=== PATIENT | male | born 1945 | race Caucasian/White ===

== ENCOUNTER 2019-03-09 07:02 | Outpatient (CLI) | payer OTHER, SELFPAY ==
[2019-03-09 07:38] LABS: HCT 42.2 % (40.0-50.0); HGB 14.6 g/dL (13.5-17.5); Mean Corp. HGB Concentration 34.6 g/dL (32.0-36.0); Mean Corpuscular Hemoglobin 31.3 pg (27.0-33.0); Mean Corpuscular Volume 90.4 fL (80-95); Mean Platelet Volume 10.2 fL (8.0-11.0); Platelet Count 252 x1000/uL (130-400); RBC 4.67 m/cumm (4.50-6.00); RBC Distribution Width 13.3 % (11.8-14.1); White Blood Cell Count 9.78 k/cumm (4.4-10.8)
[2019-03-09 08:32] LABS: ALT 46 U/L (12-78); AST 27 U/L (15-37); Albumin 3.9 g/dL (3.4-5.0); Alkaline Phosphatase 85 U/L (46-116); Anion Gap 11.3 mmol/L (3-11); BUN 14 mg/dL (7-18); Bilirubin, Total 0.5 mg/dL (0.2-1.0); CO2 24.7 mmol/L (21.0-32.0); CREATININE 1.14 mg/dL (0.70-1.30); Calcium 9.4 mg/dL (8.5-10.1); Chloride 101 mmol/L (98-107); Cholesterol 143 mg/dL (50-200); Glucose 215 mg/dL (70-100); HDL Cholesterol 36 mg/dL (40-60); LDL CHOLESTEROL 76 mg/dL (<100); Potassium 4.3 mmol/L (3.5-5.1); Sodium 137 mmol/L (136-145); Total Protein 7.4 g/dL (6.4-8.2); Triglyceride 201 mg/dL (30-150)
== END 2019-03-09 07:22 ==
PROVIDERS: PCP Nurse Practitioner; Visit Provider Nurse Practitioner
DX: E11.9 Type 2 diabetes mellitus without complications (principal); E78.5 Hyperlipidemia, unspecified; I10 Essential (primary) hypertension
CPT/HCPCS: 36415; 80053; 80061; 83721; 85027; 83036

== ENCOUNTER 2019-03-14 16:11 | Outpatient (REF) | payer OTHER, SELFPAY ==
[2019-03-14 19:41] LABS: COMMENT (LAB VIEW ONLY) 91.47 mg/dL; Microalb ug/mg Crea 8.7 ug/mg Cr
== END 2019-03-14 16:31 ==
LOC: LBN 16:11
PROVIDERS: PCP Nurse Practitioner; Visit Provider Nurse Practitioner
DX: E11.9 Type 2 diabetes mellitus without complications (principal)
CPT/HCPCS: 82043; 82570

== ENCOUNTER 2019-10-03 07:01 | Outpatient (CLI) | payer OTHER, SELFPAY ==
[2019-10-03 07:51] LABS: Hemoglobin A1C 8.5 % (4.5-6.2)
[2019-10-03 08:02] LABS: ALT 34 U/L (16-63); AST 21 U/L (15-37); Alkaline Phosphatase 87 U/L (46-116); BUN 15 mg/dL (7-18); Bilirubin, Total 0.5 mg/dL (0.2-1.0); CREATININE 1.17 mg/dL (0.70-1.30); Calcium 9.4 mg/dL (8.5-10.1); Chloride 101 mmol/L (98-107); Glucose 207 mg/dL (74-106); Potassium 4.5 mmol/L (3.5-5.1); Sodium 139 mmol/L (136-145); Total Protein 7.5 g/dL (6.4-8.2)
== END 2019-10-03 07:21 ==
PROVIDERS: PCP Nurse Practitioner; Visit Provider Nurse Practitioner
DX: I10 Essential (primary) hypertension (principal); E11.9 Type 2 diabetes mellitus without complications
CPT/HCPCS: 36415; 80053; 83036

== ENCOUNTER 2020-11-01 03:11 | Outpatient (CLI) | payer OTHER, SELFPAY ==
[2020-11-01 15:58] LABS: HCT 39.5 % (40.0-50.0); HGB 13.6 g/dL (13.5-17.5); MCH 31.1 pg (27.0-33.0); MCHC 34.4 % (32.0-36.0); MCV 90.2 fL (80-95); MPV 9.8 fL (8.0-11.0); Platelet Count 316 10^3/uL (130-400); RBC 4.38 10^6/uL (4.36-5.78); RDW 12.6 % (11.8-14.1); RDW-SD 41.5 fL; WBC 11.84 10^3/uL (4.4-10.8)
[2020-11-01 17:33] LABS: ALT 37 U/L (16-63); AST 19 U/L (15-37); Albumin 4.1 g/dL (3.4-5.0); Alkaline Phosphatase 90 U/L (46-116); Anion Gap 10.7 mmol/L (3-11); BUN 17 mg/dL (7-18); Bilirubin, Total 0.4 mg/dL (0.2-1.0); CO2 26.3 mmol/L (21.0-32.0); CREATININE 1.21 mg/dL (0.70-1.30); Calcium 9.2 mg/dL (8.5-10.1); Calculated LDL 60 mg/dL (<100); Chloride 102 mmol/L (98-107); Cholesterol 147 mg/dL (<200); Estimated GFR 58.62 (mL/min/1.73m2); Glucose 177 mg/dL (74-106); HDL Cholesterol 36 mg/dL (40-60); Sodium 139 mmol/L (136-145); Total Protein 7.5 g/dL (6.4-8.2); Triglyceride 255 mg/dL (<150)
== END 2020-11-01 03:31 ==
PROVIDERS: PCP Nurse Practitioner; Visit Provider Nurse Practitioner
DX: I10 Essential (primary) hypertension (principal); E78.5 Hyperlipidemia, unspecified; E11.9 Type 2 diabetes mellitus without complications; G47.33 Obstructive sleep apnea (adult) (pediatric)
CPT/HCPCS: 36415; 80053; 80061; 85027

== ENCOUNTER 2021-01-21 03:47 | Outpatient (CLI) | payer OTHER, SELFPAY ==
[2021-01-21 07:47] LABS: Hemoglobin A1C 8.3 % (<5.7)
[2021-01-21 07:56] LABS: HCT 41.7 % (40.0-50.0); HGB 13.9 g/dL (13.5-17.5); MCHC 33.3 % (32.0-36.0); MCV 93.1 fL (80-95); MPV 10.3 fL (8.0-11.0); Platelet Count 258 10^3/uL (130-400); RBC 4.48 10^6/uL (4.36-5.78); RDW 12.8 % (11.8-14.1); RDW-SD 43.8 fL; WBC 9.11 10^3/uL (4.4-10.8)
[2021-01-21 08:28] LABS: ALT 31 U/L (16-63); AST 14 U/L (15-37); Albumin 3.9 g/dL (3.4-5.0); Alkaline Phosphatase 101 U/L (46-116); Anion Gap 11.2 mmol/L (3-11); BUN 28 mg/dL (7-18); Bilirubin, Total 0.4 mg/dL (0.2-1.0); CO2 24.8 mmol/L (21.0-32.0); CREATININE 1.3 mg/dL (0.70-1.30); Calcium 9.2 mg/dL (8.5-10.1); Chloride 103 mmol/L (98-107); Estimated GFR 53.96 (mL/min/1.73m2); Glucose 182 mg/dL (74-106); Potassium 4.6 mmol/L (3.5-5.1); Sodium 139 mmol/L (136-145); Total Protein 7.3 g/dL (6.4-8.2)
== END 2021-01-21 03:48 | disposition home or self-care (01) ==
LOC: LBO 03:47
PROVIDERS: PCP Nurse Practitioner; Visit Provider Nurse Practitioner
DX: I10 Essential (primary) hypertension (principal); E11.9 Type 2 diabetes mellitus without complications; E78.5 Hyperlipidemia, unspecified
CPT/HCPCS: 36415; 80053; 85027; 83036

== ENCOUNTER 2021-07-23 15:08 | Outpatient (CLI) | payer OTHER, MEDICAID, SELFPAY ==
--- NOTE | 2021-07-23 15:00 | RT.EKG_ITS ---
APPROVED REPORT Exam: Resting ECG Reason for Exam: HTN Patient Location: O HR:113 bpm ECG Measurements Heart Rate 113 AXIS HI 151 P 41 QRSd 89 QRS -39 QT 323 T 64 QTc 443 Conclusion Sinus tachycardia...rate> 99 Left axis deviation...QRS axis (-30,-90)
== END 2021-07-23 15:09 | disposition home or self-care (01) ==
LOC: DI.KIM 15:08
PROVIDERS: PCP Nurse Practitioner; Visit Provider Nurse Practitioner
DX: E11.9 Type 2 diabetes mellitus without complications (principal); E78.5 Hyperlipidemia, unspecified; I10 Essential (primary) hypertension
CPT/HCPCS: 93010

== ENCOUNTER 2021-12-20 01:13 | Outpatient (CLI) | payer MEDICARE, MEDICAID, SELFPAY ==
[2021-12-20 13:18] LABS: Source Nasal/Nares
[2021-12-20 17:39] LABS: COVID-19 PCR Negative (Negative)
== END 2021-12-20 01:14 | disposition home or self-care (01) ==
LOC: LBO 01:13
PROVIDERS: PCP Nurse Practitioner; Visit Provider Ophthalmology
DX: Z20.822 Contact with and (suspected) exposure to COVID-19 (principal)
CPT/HCPCS: 87635; U0005

== ENCOUNTER 2021-12-23 11:27 | Day surgery (SDC) | payer MEDICARE, MEDICAID, SELFPAY ==
[2021-12-23] MEDS: Tropicam./Phenyleph. (1/2.5%) 5 ML BTL OS ×3 (12:28→12:42)
[2021-12-23 12:35] VITALS: BP 164/82; PULSE 119; RESP 16; TEMP 36.3; O2SAT 93
[2021-12-23 12:39] VITALS: BP 140/74; PULSE 112; RESP 16; O2SAT 95
--- NOTE | 2021-12-23 12:43 | ANES.PREOP_ITS ---
General Info Date of Service Date Performed: 12/23/21 Height: 5 ft 3.5 in Weight: 82.4 kg Body Mass Index (BMI): 31.6 Surgical Procedure: Operation Date: 12/23/21 15:40 Proposed Procedure Side Surgeon p Cataract Extraction with IOL Implant Left Alexi Peñaloza MD Meds Allergies and Home Medications Allergies Allergy/AdvReac Type Severity Reaction Status Date / Time No Known Allergies Allergy Verified 12/20/21 08:03 Home Medication Medication Instructions Recorded omega-3 fatty acids-fish oil 340 1 ea PO DAILY 12/31/12 mg-1,000 mg capsule (Fish Oil) aspirin 81 mg tablet,delayed 81 mg PO DAILY #1 tab-cap 08/11/13 release (Aspir-) blood sugar diagnostic (FreeStyle #100 strip 03/26/18 Lite Strips) albuterol sulfate 90 mcg/actuation 2 inh IH Q4H PRN #18 gm 10/02/20 aerosol inhaler lisinopril 20 1 tab PO DAILY #90 tab-cap 10/02/20 mg-hydrochlorothiazide 25 mg tablet docusate sodium 100 mg capsule 100 mg PO BID #180 cap 02/25/21 atorvastatin 40 mg tablet 40 mg PO DAILY #90 tab-cap 07/23/21 empagliflozin 25 mg tablet 25 mg PO DAILY #90 tab 09/30/21 lisinopril 20 mg tablet 20 mg PO DAILY #90 tab 09/30/21 metformin 500 mg tablet,extended 500 mg PO DAILY #90 tab-cap 09/30/21 release 24hr glipizide 10 mg tablet 10 mg PO BID #180 tab 10/14/21 Current Visit Medications: Current Medications Generic Name Dose Route Start Last Admin Trade Name Freq PRN Reason Stop Dose Admin Acetaminophen 1,000 mg 12/23/21 06:00 Acetaminophen 500 Mg Tab PO Q4H PRN PRN Miscellaneous Medication 0 ml 12/23/21 06:00 Prednisolone 1%, Moxifloxacin 0.5%, Nepafenac 0.1% 5ml Btl OS DIRECTED MAURA Miscellaneous Medication 0 ml 12/23/21 06:00 12/23/21 12:42 Tropicam./Phenyleph. (1/2.5%) 5 Ml Btl OS 1 drp DIRECTED MAURA Administration Tetracaine HCl 0 ml 12/23/21 06:00 Tetracaine 0.5% 4 Ml Btl OS DIRECTED [facility] Active Problems Active Problems: Problem Status Onset Code Diabetes mellitus type 2, controlled, without complications 05/09/13 E11.9 Hyperlipidemia 11/10/11 E78.5 Hypertension 11/10/11 I10 Knowledge deficit about therapeutic diet 03/03/18 Z78.9 Obesity, unspecified 11/10/11 E66.9 Obstructive sleep apnea syndrome 11/10/11 G47.33 Osteoarth NOS-shlder 05/09/13 M19.019 Skin tag L91.8 Cough R05 Wheeze R06.2 Depression F32.9 Noncompliance with CPAP treatment Z91.14 STEFFANIE (obstructive sleep apnea) G47.33 Routine medical exam Z00.00 Bilateral cataracts ~09/2021 H26.9 Medical History Medical History DM (diabetes mellitus) HTN (hypertension) Obesity STEFFANIE (obstructive sleep apnea) Surgical History Surgical History (Updated 12/23/21 @ 12:22 by Dahlia Hanson) Hx of shoulder surgery Tobacco Smoking/Tobacco Use Status: Never Passive smoking exposure: No Alcohol Alcohol Intake: former Substance Use Substance use: Never Substance use type: does not use Vital Signs and Lab Results Vital Signs Most Recent Vital Signs in EMR: Most Recent Vital Signs Temp Pulse Resp BP Pulse Ox 36.3 C L 112 H 16 140/74 95 12/23/21 12:35 12/23/21 12:39 12/23/21 12:39 12/23/21 12:39 12/23/21 12:39 Point of Care Results Point of Care Results: Finger Stick Blood Glucose 123 12/23/21 12:07 Lab Results Blood Type / Crossmatch: No Data to Display Complete Blood Count: No Data to Display Complete Metabolic Panel: Hemoglobin A1c 8.7 % (4.5-5.7) H 12/09/21 11:28 12/09/21 Liver Function Panel: No Data to Display Coagulation Panel: No Data to Display Cardiac Panel: No Data to Display Arterial Blood Gas: No Data to Display Venous Blood Gas: No Data to Display Pancreas Panel: No Data to Display Thyroid Panel: No Data to Display Infectious Disease: Coronavirus (COVID-19)(PCR) Negative (Negative) 12/20/21 08:43 12/20/21 Coronavirus 2019 Source Nasal/Nares 12/20/21 08:43 12/20/21 Blood Cultures: No Data to Display Toxicology Panel: No Data to Display Imaging and Studies Imaging and Studies Study information below may be from another EMR and interpreted by another provider. Please see original notes in EMR for more complete details. EKG Summary: DATE/TIME OF SERVICE: 07/23/21 1536 : 1945PERFORMING LOCATION: [facility] APPROVED REPORT Exam: Resting ECG Reason for Exam: HTN Patient Location: O HR:113 bpm ECG Measurements Heart Rate 113 AXIS SD 151 P 41 QRSd 89 QRS -39 QT 323 T64 QTc 443 Conclusion Sinus tachycardia...rate> 99 Left axis deviation...QRS axis (-30,-90) Anesthesia Assessment and Plan Anesthesia History Personal History: No History of Anesthesia Complications Family History: No Family History of Anesthesia Complications Exercise Tolerance Exercise Tolerance: Metabolic Equivalents>4 Pertinent Negatives Pertinent Negatives: No Symptoms of GERD Cardiac & Pulmonary Exam Cardiac Exam: Normal S1/S2 Heart Sounds Pulmonary Exam: Clear Bilateral Breath Sounds Implantable Cardiac Device Does patient have a Pacemaker or an ICD?: No Airway Exam Known Difficult Airway: No Mallampati Class: 2 Mouth Opening: Normal (> 3cm) Thyromental Distance: Greater than 3 cm Neck Range of Motion: Full ROM Neck Circumference: Normal Teeth Condition: Removable Dentures/Plates Upper ASA Classification ASA Score: ASA 2 Emergency Case?: No NPO Status NPO Status: NPO Clears >2 hours, Solids >8 hours Anesthesia Plan Resuscitation Status: Full Code Anesthesia Technique: MAC Anesthesia Airway Planned: Natural Airway Monitors Used: Standard Monitors
[2021-12-23 13:06] VITALS: BMI 31.6
[2021-12-23] MEDS: Tetracaine 0.5% 4 ML BTL OS (13:19)
[2021-12-23] MEDS: Lidocaine 2% Jelly 6 ML SYR (13:20)
[2021-12-23] MEDS: Povidone-Iodine Ophth 30 ML BTL (13:20)
[2021-12-23] MEDS: Duovisc Viscoelastic System EACH 1 EACH (13:30)
[2021-12-23] MEDS: Balanced Salt Soln.-PLUS 500 ML BAG (13:30)
[2021-12-23 13:48] VITALS: BP 128/86; PULSE 112; RESP 16; TEMP 36.4; O2SAT 93
--- NOTE | 2021-12-23 13:48 | W.PM.DSUDISC ---
Discharge Plan Disposition Patient Disposition: HOME Condition: Good Discharge Details Attending Provider: Alexi Peñaloza Primary Care Provider: Farrah Shepard Home Meds and New Rx's Prescriptions: No Action lisinopril-hydrochlorothiazide 20-25 mg tablet 1 tab PO DAILY Qty: 90 3RF albuterol sulfate 90 mcg/actuation HFA aerosol inhaler 2 inh IH Q4H PRN (Reason: shortness of breath or wheezing) Qty: 18 6RF docusate sodium 100 mg capsule 100 mg PO BID Qty: 180 3RF atorvastatin 40 mg tablet 40 mg PO DAILY Qty: 90 3RF aspirin [Aspir-81] 81 MG tablet,delayed release (DR/EC) 81 mg PO DAILY Qty: 1 12RF (DME) FreeStyle Lite Strips 1 EACH strip 1 ea Miscellaneous BID Qty: 100 6RF Rx Instructions: Dx: E11.9 empagliflozin 25 mg tablet 25 mg PO DAILY Qty: 90 3RF Rx Instructions: 1/2 tab daily for 7 days then 1 full tab daily. lisinopril 20 mg tablet 20 mg PO DAILY Qty: 90 3RF Rx Instructions: Take with Lisinopril 20/HCTZ 25 to total 40mg daily of Lisinopril metformin 500 mg tablet extended release 24hr 500 mg PO DAILY Qty: 90 3RF glipizide 10 mg tablet 10 mg PO BID Qty: 180 3RF Fish Oil 1 EACH capsule 1 ea PO DAILY 0RF Discharge Instructions Stand Alone Forms: Post-op Topical Cataract, Irma Still (DSU) Discharge Orders Discharge Orders: Discharge Order (Routine); Ordered 12/23/21 Ordered By: Alexi Peñaloza DS: Diagnosis Discharge Diagnosis (1) Posterior subcapsular age-related cataract of left eye: Status: Resolved (2) Nuclear sclerotic cataract of left eye: Status: Resolved
--- NOTE | 2021-12-23 13:51 | W.PM.OP ---
Date of service: 12/23/21 Time of Service: 13:52 Operative Note Operative Note DATE OF PROCEDURE: 12/23/21 PRE-OP DIAGNOSIS: Nuclear/posterior subcapsular cataract, left eye POST-OP DIAGNOSIS: same PROCEDURE: Cataract extraction using phacoemulsification with intraocular lens implant, left eye SURGEON: Alexi Peñaloza ANESTHESIA TYPE: Local By Surgeon and MAC Refer to Anesthesia Record PATHOLOGY: none sent COMPLICATIONS: None Patient was transported to: same day Patient's condition: stable Implants: Wayne Clareon [id number] Indications: Progressive decreased vision due to cataract, left eye Procedure Description: CATARACT SURGERY OPERATIVE REPORT PREOPERATIVE DIAGNOSIS: Nuclear/posterior subcapsular cataract, left eye POSTOPERATIVE DIAGNOSIS: Same OPERATION: Cataract extraction using phacoemulsification with posterior chamber intraocular lens implant, left eye. IOL: IOL Stretcher Leveler Operator Helper/Model: Wayne Clareon [id number] IOL Power: + 21.0 diopters IOL Serial Number: [id number] Optic Diameter: 6.0mm Haptic/Overall Diameter: 13.0mm PHACO INFO: WayneBroadband Voiceurion Vision System with OZil and Active Fluidics Cumulative Dispersed Energy (CDE): 7.64 seconds SURGEON: Alexi Peñaloza MD, EUGENIA ANESTHESIA: Monitored Anesthesia Care (MAC), with local sub-tenon's anesthetic infiltration COMPLICATIONS: None SPECIMENS: None INDICATIONS FOR PROCEDURE: The patient is a 76-year-old gentleman with history of diminished visual acuity in his left eye secondary to the development of nuclear and posterior subcapsular cataract. He is significantly symptomatic that he desires cataract surgery and attempt to improve and maximize his vision. The option of cataract surgery was offered to the patient and he wished to proceed. PROCEDURE: The correct surgical eye was identified and marked as the left eye and the pupil was dilated in the preoperative area using mydriatics and cycloplegics. The dilated pupil size was 5.5 mm. Oral sedation was administered in the form of an Imprimis MKO Melt (midazolam 3mg/ketamine 25mg/ondansetron 2mg). The patient was brought to the operating room where cardiopulmonary monitoring was instituted and surgical time-out was performed, confirming the correct operative eye and IOL power. Topical anesthesia was administered and ophthalmic povidone-iodine 5% was instilled into the conjunctival fornices. Lidocaine gel was applied to the cornea and the purvi-ocular area was prepped with Betadine 10% solution and draped in the usual sterile fashion for intraocular surgery, including an aperture drape. A Tegaderm transparent film dressing was cut in half and used to cover the lashes and lid margins. Care was taken to sequester the lashes and lid margins under the Tegaderm dressing. A lid speculum was placed between the lids of the operative eye and the Wayne LuxOR Revalia operating microscope was maneuvered into position. Abdulkadir scissors were then used to make a conjunctival buttonhole approximately 6mm posterior to the limbus in the inferonasal quadrant. Blunt dissection was carried out to expose bare sclera, and a blunt-tipped sub-tenon?s anesthesia cannula was introduced and passed posteriorly along the globe where non-preserved plain lidocaine was injected into posterior sub-Tenon?s space. A sideport knife was used to make a paracentesis port superior/superiortemporally. Intraocular phenylephrine/lidocaine was injected into the anterior chamber. The anterior chamber was then filled with viscoelastic. A 2.4mm keratome knife was used to create a half-thickness groove at the limbus and then to construct a three-plane near-clear corneal tunnel extending 2.0mm into clear cornea in the temporal position. . A flap was raised on the anterior capsule and capsulorhexis forceps were used to complete a continuous curvilinear capsulorhexis of 5.0 mm. Balanced salt solution was then used to perform cortical cleaving hydrodissection and nuclear hydrodelineation until the lens could be freely rotated within the capsular bag. The lens nucleus was then disassembled and removed within the capsular bag and iris plane using phacoemulsification. Residual cortical material was removed using the 45-degree angled silicone I/A tip with 0.3mm port. The posterior capsule was carefully polished to remove as much residual lens epithelial cells as safely possible. The capsular bag was then inflated and the anterior chamber deepened with viscoelastic. The lens implant described above was inserted into the capsular bag using the Wayne Autonome Injector. A Kuglen hook was used to dial the IOL into position. Residual viscoelastic was then removed first from posterior to the IOL, then from the anterior chamber using the I/A handpiece. The lens implant was noted to center nicely within the capsular bag. The incisions were stromally hydrated, and the anterior chamber was reformed using BSS. Then 0.5cc of moxifloxacin 1.0mg/ml were injected into the capsular bag and anterior chamber. The incisions were checked with a Weck spear and found to be secure. Several drops of ophthalmic povidone-iodine 5% were then applied to the eye followed by two drops of Imprimis combination prednisolone/moxifloxacin/nepafenac solution. The drapes were removed and a clear plastic protective eye shield was placed over the eye. The patient was then returned to Same Day Surgery in stable condition.
--- NOTE | 2021-12-23 13:56 | W.ANESPOSTOP ---
Postoperative Evaluation Date, Time and Location Date Performed: 12/23/21 Time Performed: 13:56 Patient Location: Day Surgery Unit Vital Signs Most Recent Imported Vital Signs: Most Recent Vital Signs Temp Pulse Resp BP Pulse Ox 36.4 C L 112 H 16 128/86 93 12/23/21 13:48 12/23/21 13:48 12/23/21 13:48 12/23/21 13:48 12/23/21 13:48 Pain Score Most Recent Pain Score: Most Recent Pain Score Pain Level 0 12/23/21 13:48 Assessment Mental Status: Awake (Alert & Oriented to Patient Baseline) Airway and Respiratory Function: Patent airway with normal (patient baseline) respiratory exam Cardiovascular Function: Hemodynamically Stable Hydration Status: Adequately Hydrated Nausea & Vomiting: No Nausea or Vomiting Pain: Pt. Denies Any Pain Peripheral Nerve Block: Patient did not receive a nerve block Teaching Patient Teaching: Advised to seek followup for the following concerns (See explanation) Concerns: Other (Ongoing tachycardia. It appears his HR has been 100-120 for months. I suggested he followup woth PCP to see if optimiazation is in order. )
[2021-12-23 14:16] VITALS: BP 121/81; PULSE 117; RESP 16; TEMP 37.1; O2SAT 96
== END 2021-12-23 14:20 | disposition home or self-care (01) ==
PROVIDERS: PCP Nurse Practitioner; Visit Provider Ophthalmology
PROC: (CPT 66984; principal; 2021-12-23 15:30)
DX: H25.042 Posterior subcapsular polar age-related cataract, left eye (principal); E11.9 Type 2 diabetes mellitus without complications; G47.33 Obstructive sleep apnea (adult) (pediatric); I10 Essential (primary) hypertension
CPT/HCPCS: 66984; V2632

== ENCOUNTER 2022-01-03 01:47 | Outpatient (CLI) | payer MEDICARE, SELFPAY ==
[2022-01-03 12:25] LABS: Source Nasal/Nares
[2022-01-03 17:20] LABS: COVID-19 PCR Negative (Negative)
== END 2022-01-03 01:48 | disposition home or self-care (01) ==
LOC: LBO 01:47
PROVIDERS: PCP Nurse Practitioner; Visit Provider Ophthalmology
DX: Z20.822 Contact with and (suspected) exposure to COVID-19 (principal); Z01.818 Encounter for other preprocedural examination
CPT/HCPCS: 87635; U0005

== ENCOUNTER 2022-01-06 07:58 | Day surgery (SDC) | payer MEDICARE, SELFPAY ==
[2022-01-06] MEDS: Tropicam./Phenyleph. (1/2.5%) 5 ML BTL OD ×3 (08:27→08:37)
[2022-01-06 08:28] VITALS: BP 140/90; PULSE 108; RESP 18; TEMP 36; O2SAT 98
--- NOTE | 2022-01-06 09:24 | ANES.PREOP_ITS ---
General Info Date of Service Date Performed: 01/06/22 Height: 5 ft 3.5 in Weight: 82.5 kg Body Mass Index (BMI): 31.7 Surgical Procedure: Operation Date: 01/06/22 10:40 Proposed Procedure Side Surgeon p Cataract Extraction with IOL Implant Right Alexi Peñaloza MD Meds Allergies and Home Medications Allergies Allergy/AdvReac Type Severity Reaction Status Date / Time No Known Allergies Allergy Verified 01/06/22 08:24 Home Medication Medication Instructions Recorded omega-3 fatty acids-fish oil 340 1 ea PO DAILY 12/31/12 mg-1,000 mg capsule (Fish Oil) aspirin 81 mg tablet,delayed 81 mg PO DAILY #1 tab-cap 08/11/13 release (Aspir-) blood sugar diagnostic (FreeStyle #100 strip 03/26/18 Lite Strips) albuterol sulfate 90 mcg/actuation 2 inh IH Q4H PRN #18 gm 10/02/20 aerosol inhaler lisinopril 20 1 tab PO DAILY #90 tab-cap 10/02/20 mg-hydrochlorothiazide 25 mg tablet docusate sodium 100 mg capsule 100 mg PO BID #180 cap 02/25/21 atorvastatin 40 mg tablet 40 mg PO DAILY #90 tab-cap 07/23/21 empagliflozin 25 mg tablet 25 mg PO DAILY #90 tab 09/30/21 lisinopril 20 mg tablet 20 mg PO DAILY #90 tab 09/30/21 metformin 500 mg tablet,extended 500 mg PO DAILY #90 tab-cap 09/30/21 release 24hr glipizide 10 mg tablet 10 mg PO BID #180 tab 10/14/21 Current Visit Medications: Current Medications Generic Name Dose Route Start Last Admin Trade Name Freq PRN Reason Stop Dose Admin Acetaminophen 1,000 mg 01/06/22 06:00 Acetaminophen 500 Mg Tab PO Q4H PRN PRN Miscellaneous Medication 0 ml 01/06/22 06:00 Prednisolone 1%, Moxifloxacin 0.5%, Nepafenac 0.1% 5ml Btl OD DIRECTED MAURA Miscellaneous Medication 0 ml 01/06/22 06:00 01/06/22 08:37 Tropicam./Phenyleph. (1/2.5%) 5 Ml Btl OD 1 drp DIRECTED MAURA Administration Tetracaine HCl 0 ml 01/06/22 06:00 Tetracaine 0.5% 4 Ml Btl OD DIRECTED [facility] Active Problems Active Problems: Problem Status Onset Code Diabetes mellitus type 2, controlled, without complications 05/09/13 E11.9 Hyperlipidemia 11/10/11 E78.5 Hypertension 11/10/11 I10 Knowledge deficit about therapeutic diet 03/03/18 Z78.9 Obesity, unspecified 11/10/11 E66.9 Obstructive sleep apnea syndrome 11/10/11 G47.33 Osteoarth NOS-shlder 05/09/13 M19.019 Skin tag L91.8 Cough R05 Wheeze R06.2 Depression F32.9 Noncompliance with CPAP treatment Z91.14 STEFFANIE (obstructive sleep apnea) G47.33 Routine medical exam Z00.00 Bilateral cataracts ~09/2021 H26.9 Nuclear sclerotic cataract of left eye H25.12 Posterior subcapsular age-related cataract of left eye H25.042 Medical History Medical History DM (diabetes mellitus) HTN (hypertension) Obesity STEFFANIE (obstructive sleep apnea) Surgical History Surgical History (Updated 01/06/22 @ 08:24 by Dahlia Hanson) Hx of cataract surgery Hx of shoulder surgery Tobacco Smoking/Tobacco Use Status: Never Passive smoking exposure: No Alcohol Alcohol Intake: former Substance Use Substance use: Never Substance use type: does not use Vital Signs and Lab Results Vital Signs Most Recent Vital Signs in EMR: Most Recent Vital Signs Temp Pulse Resp BP Pulse Ox 36 C L 108 H 18 140/90 98 01/06/22 08:28 01/06/22 08:28 01/06/22 08:28 01/06/22 08:28 01/06/22 08:28 Point of Care Results Point of Care Results: Finger Stick Blood Glucose 210 01/06/22 08:37 Lab Results Blood Type / Crossmatch: No Data to Display Complete Blood Count: No Data to Display Complete Metabolic Panel: Hemoglobin A1c 8.7 % (4.5-5.7) H 12/09/21 11:28 12/09/21 Liver Function Panel: No Data to Display Coagulation Panel: No Data to Display Cardiac Panel: No Data to Display Arterial Blood Gas: No Data to Display Venous Blood Gas: No Data to Display Pancreas Panel: No Data to Display Thyroid Panel: No Data to Display Infectious Disease: Coronavirus (COVID-19)(PCR) Negative (Negative) 01/03/22 08:48 01/03/22 Coronavirus 2019 Source Nasal/Nares 01/03/22 08:48 01/03/22 Blood Cultures: No Data to Display Toxicology Panel: No Data to Display Imaging and Studies Imaging and Studies Study information below may be from another EMR and interpreted by another provider. Please see original notes in EMR for more complete details. EKG Summary: DATE/TIME OF SERVICE: 07/23/21 1536 : 1945PERFORMING LOCATION: [facility] APPROVED REPORT Exam: Resting ECG Reason for Exam: HTN Patient Location: O HR:113 bpm ECG Measurements Heart Rate 113 AXIS VA 151 P 41 QRSd 89 QRS -39 QT 323 T64 QTc 443 Conclusion Sinus tachycardia...rate> 99 Left axis deviation...QRS axis (-30,-90) Anesthesia Assessment and Plan Anesthesia History Personal History: No History of Anesthesia Complications Family History: No Family History of Anesthesia Complications Exercise Tolerance Exercise Tolerance: Metabolic Equivalents>4 Pertinent Negatives Pertinent Negatives: No Symptoms of GERD, No Major Cardiovascular Symptoms or Complaints, No Major Pulmonary Symptoms or Complaints and No History of CVA/TIA Cardiac & Pulmonary Exam Cardiac Exam: Normal S1/S2 Heart Sounds Pulmonary Exam: Clear Bilateral Breath Sounds Implantable Cardiac Device Does patient have a Pacemaker or an ICD?: No Airway Exam Known Difficult Airway: No Mallampati Class: 2 Mouth Opening: Normal (> 3cm) Thyromental Distance: Greater than 3 cm Neck Range of Motion: Full ROM Neck Circumference: Normal Teeth Condition: Removable Dentures/Plates Upper ASA Classification ASA Score: ASA 2 Emergency Case?: No NPO Status NPO Status: NPO Clears >2 hours, Solids >8 hours Anesthesia Plan Resuscitation Status: Full Code Anesthesia Technique: MAC Anesthesia Airway Planned: Natural Airway Monitors Used: Standard Monitors
[2022-01-06 09:26] VITALS: BMI 31.7
[2022-01-06] MEDS: Lidocaine 2% Jelly 6 ML SYR (09:34)
[2022-01-06] MEDS: Tetracaine 0.5% 4 ML BTL OD (09:34)
[2022-01-06] MEDS: Povidone-Iodine Ophth 30 ML BTL (09:34)
[2022-01-06] MEDS: Balanced Salt Soln.-PLUS 500 ML BAG (09:44)
[2022-01-06] MEDS: Duovisc Viscoelastic System EACH 1 EACH (09:45)
[2022-01-06 10:02] VITALS: BP 116/74; PULSE 103; RESP 16; TEMP 36.6; O2SAT 97
--- NOTE | 2022-01-06 10:03 | W.PM.DSUDISC ---
Discharge Plan Disposition Patient Disposition: HOME Condition: Good Discharge Details Attending Provider: Alexi Peñaloza Primary Care Provider: Farrah Shepard Home Meds and New Rx's Prescriptions: No Action lisinopril-hydrochlorothiazide 20-25 mg tablet 1 tab PO DAILY Qty: 90 3RF albuterol sulfate 90 mcg/actuation HFA aerosol inhaler 2 inh IH Q4H PRN (Reason: shortness of breath or wheezing) Qty: 18 6RF docusate sodium 100 mg capsule 100 mg PO BID Qty: 180 3RF atorvastatin 40 mg tablet 40 mg PO DAILY Qty: 90 3RF aspirin [Aspir-81] 81 MG tablet,delayed release (DR/EC) 81 mg PO DAILY Qty: 1 12RF (DME) FreeStyle Lite Strips 1 EACH strip 1 ea Miscellaneous BID Qty: 100 6RF Rx Instructions: Dx: E11.9 empagliflozin 25 mg tablet 25 mg PO DAILY Qty: 90 3RF Rx Instructions: 1/2 tab daily for 7 days then 1 full tab daily. lisinopril 20 mg tablet 20 mg PO DAILY Qty: 90 3RF Rx Instructions: Take with Lisinopril 20/HCTZ 25 to total 40mg daily of Lisinopril metformin 500 mg tablet extended release 24hr 500 mg PO DAILY Qty: 90 3RF glipizide 10 mg tablet 10 mg PO BID Qty: 180 3RF Fish Oil 1 EACH capsule 1 ea PO DAILY 0RF Discharge Instructions Stand Alone Forms: Post-op Topical Cataract, Press Ganey (DSU) Discharge Orders Discharge Orders: Discharge Order (Routine); Ordered 01/06/22 Ordered By: Alexi Peñaloza
--- NOTE | 2022-01-06 10:03 | W.ANESPOSTOP ---
Postoperative Evaluation Date, Time and Location Date Performed: 01/06/22 Time Performed: 10:03 Patient Location: Day Surgery Unit Vital Signs Most Recent Imported Vital Signs: Most Recent Vital Signs Temp Pulse Resp BP Pulse Ox 36 C L 108 H 18 140/90 98 01/06/22 08:28 01/06/22 08:28 01/06/22 08:28 01/06/22 08:28 01/06/22 08:28 Most Recent Manually Entered Vital Signs: Adult Blood Pressure: 116/74 Heart Rate: 104 Respirations: 12 Oxygen Saturation (%): 97 Temperature (C): 6.6 C Pain Score (0-10 Scale): 0 Pain Score Most Recent Pain Score: Most Recent Pain Score Pain Level 0 01/06/22 08:28 Assessment Mental Status: Awake (Alert & Oriented to Patient Baseline) Airway and Respiratory Function: Patent airway with normal (patient baseline) respiratory exam Cardiovascular Function: Hemodynamically Stable Hydration Status: Adequately Hydrated Nausea & Vomiting: No Nausea or Vomiting Pain: Pt. Denies Any Pain Peripheral Nerve Block: Patient did not receive a nerve block
[2022-01-06 10:04] VITALS: BP 116/74; PULSE 104; RESP 12; TEMPC 43.9; TEMPC 6.6; O2SAT 97
--- NOTE | 2022-01-06 10:04 | ROE_ITS ---
Date of service: 01/06/22 Time of Service: 10:04 Operative Note Operative Note DATE OF PROCEDURE: 01/06/22 PRE-OP DIAGNOSIS: Nuclear/posterior subcapsular cataract, right eye POST-OP DIAGNOSIS: same PROCEDURE: Cataract extraction using phacoemulsification with intraocular lens implant, right eye SURGEON: Alexi Peñaloza ANESTHESIA TYPE: Local By Surgeon and MAC Refer to Anesthesia Record ESTIMATED BLOOD LOSS: 0 PATHOLOGY: none sent COMPLICATIONS: None Patient was transported to: same day Patient's condition: stable Implants: Onofre & Onofre/JEANNETTE Tecnis [id number] Indications: Progressive visual loss due to cataract, right eye Procedure Description: CATARACT SURGERY OPERATIVE REPORT PREOPERATIVE DIAGNOSIS: 1. Nuclear/posterior subcapsular cataract, right eye POSTOPERATIVE DIAGNOSIS: Same OPERATION: 1. Cataract extraction using phacoemulsification with posterior chamber intraocular lens implant, right eye. IOL: IOL Steel Placer/Model: Onofre & Onofre / JEANNETTE Tecnis [id number] IOL Power: + 20.0 diopters IOL Serial Number: [id number] Optic Diameter: 6.0mm Haptic/Overall Diameter: 13.0mm PHACO INFO: Wayne Skycast Solutionsurion Vision System with OZil and Active Fluidics Cumulative Dispersed Energy (CDE): 8.95 seconds SURGEON: Alexi Peñaloza MD, EUGENIA ANESTHESIA: Monitored Anesthesia Care (MAC), with local sub-tenon's anesthetic infiltration COMPLICATIONS: None SPECIMENS: None INDICATIONS FOR PROCEDURE: The patient is a 76-year-old gentleman with history of diminished visual acuity in both eyes secondary to the development of bilateral nuclear/posterior subcapsular cataract. He has already undergone cataract surgery in the left eye and is doing well postoperatively. He now presents for cataract surgery in the right eye. PROCEDURE: The correct surgical eye was identified and marked as the right eye and the pupil was dilated in the preoperative area using mydriatics and cycloplegics. The dilated pupil size was 5.0 mm. Oral sedation was administered in the form of an Imprimis MKO Melt (midazolam 3mg/ketamine 25mg/ondansetron 2mg). The patient was brought to the operating room where cardiopulmonary monitoring was instituted and surgical time-out was performed, confirming the correct operative eye and IOL power. Topical anesthesia was administered and ophthalmic povidone-iodine 5% was instilled into the conjunctival fornices. Lidocaine gel was applied to the cornea and the purvi-ocular area was prepped with Betadine 10% solution and draped in the usual sterile fashion for intraocular surgery, including an aperture drape. A Tegaderm transparent film dressing was cut in half and used to cover the lashes and lid margins. Care was taken to sequester the lashes and lid margins under the Tegaderm dressing. A lid speculum was placed between the lids of the operative eye and the Wayne LuxOR Revalia operating microscope was maneuvered into position. Abdulkadir scissors were then used to make a conjunctival buttonhole approximately 6mm posterior to the limbus in the inferonasal quadrant. Blunt dissection was carried out to expose bare sclera, and a blunt-tipped sub-tenon?s anesthesia cannula was introduced and passed posteriorly along the globe where non- preserved plain lidocaine was injected into posterior sub-Tenon?s space. A sideport knife was used to make a paracentesis port inferotemporally. Intraocular phenylephrine/lidocaine was injected into the anterior chamber. The anterior chamber was filled with viscoelastic. A 2.4mm keratome knife was used to create a half-thickness groove at the limbus and then to construct a three- plane near-clear corneal tunnel extending 2.0mm into clear cornea superiortemporally. A flap was raised on the anterior capsule and capsulorhexis forceps were used to complete a continuous curvilinear capsulorhexis of 5.0 mm. Balanced salt solution was then used to perform cortical cleaving hydrodissection and nuclear hydrodelineation until the lens could be freely rotated within the capsular bag. The lens nucleus was then disassembled and r emoved within the capsular bag and iris plane using phacoemulsification. Residual cortical material was removed using the I/A handpiece. The posterior capsule was carefully polished to remove as much residual lens epithelial cells as safely possible. The capsular bag was then inflated and the anterior chamber deepened with viscoelastic. The lens implant described above was inserted into the capsular bag using the JEANNETTE [place] Injector. A Kuglen hook was used to dial the IOL into position. Residual viscoelastic was then removed first from posterior to the IOL, then from the anterior chamber using the I/A handpiece. The lens implant was noted to center nicely within the capsular bag. The incisions were stromally hydrated, and the anterior chamber was reformed using BSS. Then 0.5cc of moxifloxacin 1.0mg/ml were injected into the capsular bag and anterior chamber. The incisions were checked with a Weck spear and found to be secure. Several drops of ophthalmic povidone-iodine 5% were then applied to the eye followed by two drops of Imprimis combination prednisolone/moxifloxacin/nepafenac solution. The drapes were removed and a clear plastic protective eye shield was placed over the eye. The patient was then returned to Same Day Surgery in stable condition.
[2022-01-06 10:31] VITALS: BP 116/83; PULSE 111; RESP 16; TEMP 36.6; O2SAT 97
== END 2022-01-06 10:38 | disposition home or self-care (01) ==
PROVIDERS: PCP Nurse Practitioner; Visit Provider Ophthalmology
PROC: (CPT 66984; principal; 2022-01-06 10:30)
DX: H25.041 Posterior subcapsular polar age-related cataract, right eye (principal); E11.9 Type 2 diabetes mellitus without complications; I10 Essential (primary) hypertension; E78.5 Hyperlipidemia, unspecified; G47.33 Obstructive sleep apnea (adult) (pediatric)
CPT/HCPCS: 66984; V2632

== ENCOUNTER 2022-05-27 03:52 | Outpatient (CLI) | payer MEDICARE, SELFPAY | END 2022-05-27 03:53 | disposition home or self-care (01) | PROVIDERS: PCP Nurse Practitioner; Visit Provider Nurse Practitioner ==

== ENCOUNTER 2022-05-30 01:05 | Outpatient (CLI) | payer MEDICARE, SELFPAY ==
--- OUTSIDE RECORDS SUMMARY | 2022-05-30 01:08 | XMS_ITS | Clinical Summary ---
:1945 Author Organization [facility] [place] [address] Care Team Providers Name Role Phone Unknown Primary Care Provider Unavailable Allergies No known active allergies Medications Medication Sig Dispensed Refills Start Date End Date Status aspirin 325 mg tablet Take 325 mg by 0 Active mouth daily. lovastatin (MEVACOR) 40 Take 40 mg by 0 Active mg tablet mouth nightly. lisinopril-hydrochloroth Take 1 tablet by 0 Active iazide mouth daily. (PRINZIDE;ZESTORETIC) 20-25 mg per tablet DOCOSAHEXANOIC ACID/EPA Take by mouth. 0 Active (FISH OIL ORAL) Active Problems Problem Noted Date Squamous cell carcinoma 10/21/2011 Actinic keratosis 10/21/2011 Social History Tobacco Use Types Packs/Day Years Used Date Never Smoker Sex Assigned at Date Recorded Not on file Plan of Treatment Health Maintenance Due Date Last Done Comments Covid-19 Vaccine (#1) 1951 Hepatitis C Screening 1964 Tdap adult 1965 Tetanus vaccine 1965 Zoster vaccine (1 of 2) 1996 Advance Directive 2001 Pneumoccocal Vaccine: 65+ (1 - PCV) 2011 Influenza (Flu) vaccine (1 of 1 - Influenza standard 07/03/2022 series) Care Teams Tool Chaser Relationship Specialty Start Date End Date Unknown PCP - General 08/12/17 None
--- OUTSIDE RECORDS SUMMARY | 2022-05-30 01:08 | XMS_ITS | Encounter Summary ---
:1945 Author Organization [facility] Address [address] [place] [address] Care Team Providers Name Role Phone Herb Darling MD Primary Care Provider [phone] Encounter Details Date Type Department Care Team Description 10/07/2010 Office Visit Dermatology Chris Aguilar MD [address] DERMATOLOGY [place], [place] [address] [place] [address] [phone] (Wo rk) Social History Tobacco Use Types Packs/Day Years Used Date Never Assessed Sex Assigned at Date Recorded Not on file documented as of this encounter Plan of Treatment Not on filedocumented as of this encounter Visit Diagnoses Not on filedocumented in this encounter Care Teams Acute Care Occupational Therapist Relationship Specialty Start Date End Date Herb Darling MD PCP - General 09/24/10 08/11/17 [address] [place], [place] [address] documented as of this encounter
--- OUTSIDE RECORDS SUMMARY | 2022-05-30 01:08 | XMS_ITS | Encounter Summary ---
:1945 Author Organization [facility] [place] [address] Care Team Providers Name Role Phone Herb Darling MD Primary Care Provider [phone] Reason for Visit Reason Comments Skin Lesion Encounter Details Date Type Department Care Team Description 10/21/2011 Office Visit Dermatology Chris Aguilar, Squamous cell carcinoma ([facility] royce Dx); [address] [facility] Actinic keratosis [address] [place], [place] DERMATOLOGY [id number] [place] [address] [phone] (Wo rk) Social History Tobacco Use Types Packs/Day Years Used Date Never Smoker Sex Assigned at Date Recorded Not on file documented as of this encounter Progress Notes Chris Aguilar MD - 10/21/2011 4:27 PM EST Problem: New skin lesions. Yaron follows up to see me after last being seen for skin tags in October of 2010. He's noted a growing nodule on the left preauricular cheek, which is somewhat painful. Also noted a rough spot on his right preauricular cheek. Physical examination reveals a 1 cm crusted scabbing nodule on the left preauricular cheek, consistent with a squamous cell carcinoma. On the right cheek, there is a single actinic keratosis. Patient blue-eyed with justyn skin and moderate solar telangiectatic damage. However, the remainder of the sun exposed skin examination is benign. Assessment and plan: Probable squamous cell carcinoma, left preauricular cheek, actinic keratosis ofright preauricular cheek. A. After obtaining informed patient consent, the site on the left preauricular cheek, was anesthetized and then shave C and D was performed. Triple antibiotic ointment and Band-Aid placed. Wound care instructions and supplies given. Return to clinic when necessary/concerns. Will notify patient about results in one week. B. Actinic keratosis was treated with LN 2x2. Patient tolerated tolerated both treatments well. CC: Herb Darling M.D. Pathology Addendum per [facility] 10/29/11 : Squamous Cell Carcinoma documented in this encounter Plan of Treatment Not on filedocumented as of this encounter Visit Diagnoses Diagnosis Squamous cell carcinoma - Primary Other malignant neoplasm without specifi cation of site Actinic keratosis documented in this encounter Care Teams Catheter Finisher And Inspector Relationship Specialty Start Date End Date Herb Darling MD PCP - General 09/24/10 08/11/[address] [place] [address] documented as of this encounter
[2022-05-30 13:01] LABS: ALT 21 U/L (16-63); AST 14 U/L (15-37); Albumin 4.1 g/dL (3.4-5.0); Alkaline Phosphatase 86 U/L (46-116); Anion Gap 11.4 mmol/L (3-11); BUN 30 mg/dL (7-18); Bilirubin, Total 0.5 mg/dL (0.2-1.0); CO2 23.6 mmol/L (21.0-32.0); CREATININE 1.5 mg/dL (0.70-1.30); Calcium 9.2 mg/dL (8.5-10.1); Calculated LDL 66 mg/dL (<100); Chloride 102 mmol/L (98-107); Cholesterol 159 mg/dL (<200); Glucose 159 mg/dL (74-106); HDL Cholesterol 38 mg/dL (40-60); Potassium 4.3 mmol/L (3.5-5.1); Sodium 137 mmol/L (136-145); Total Protein 7.7 g/dL (6.4-8.2); Triglyceride 279 mg/dL (<150)
== END 2022-05-30 01:06 | disposition home or self-care (01) ==
LOC: LOS 01:05
PROVIDERS: PCP Nurse Practitioner; Visit Provider Nurse Practitioner
DX: E11.9 Type 2 diabetes mellitus without complications (principal); I10 Essential (primary) hypertension; E78.5 Hyperlipidemia, unspecified
CPT/HCPCS: 36415; 80053; 80061

== ENCOUNTER 2022-07-21 03:19 | Outpatient (CLI) | payer MEDICARE, SELFPAY ==
[2022-07-21 12:32] LABS: BUN 29 mg/dL (7-18); CREATININE 1.2 mg/dL (0.70-1.30); Calcium 9.4 mg/dL (8.5-10.1); Chloride 101 mmol/L (98-107); Estimated GFR 62.67 (mL/min/1.73m2); Glucose 170 mg/dL (74-106); Sodium 137 mmol/L (136-145)
== END 2022-07-21 03:20 | disposition home or self-care (01) ==
LOC: LBO 03:19
PROVIDERS: PCP Nurse Practitioner; Visit Provider Nurse Practitioner
DX: E11.9 Type 2 diabetes mellitus without complications (principal)
CPT/HCPCS: 36415; 80048

== ENCOUNTER 2024-01-12 04:20 | Outpatient (CLI) | payer MEDICARE, SELFPAY ==
[2024-01-12 13:06] LABS: ALT 27 U/L (16-63); AST 16 U/L (15-37); Albumin 4.1 g/dL (3.4-5.0); Alkaline Phosphatase 89 U/L (46-116); Anion Gap 11.3 mmol/L (3-11); BUN 31 mg/dL (7-18); Bilirubin, Total 0.7 mg/dL (0.2-1.0); CO2 24.7 mmol/L (21.0-32.0); CREATININE 1.4 mg/dL (0.70-1.30); Calcium 9.6 mg/dL (8.5-10.1); Calculated LDL 70 mg/dL (<100); Chloride 102 mmol/L (98-107); Cholesterol 150 mg/dL (<200); Estimated GFR 51.77 (mL/min/1.73m2); Glucose 158 mg/dL (74-106); HDL Cholesterol 43 mg/dL (40-60); Potassium 4.2 mmol/L (3.5-5.1); Sodium 138 mmol/L (136-145); Triglyceride 188 mg/dL (<150)
== END 2024-01-12 04:21 | disposition home or self-care (01) ==
LOC: LBO 04:20
PROVIDERS: PCP Nurse Practitioner; Referring Provider Nurse Practitioner; Visit Provider Nurse Practitioner
DX: I10 Essential (primary) hypertension (principal); E78.5 Hyperlipidemia, unspecified; E11.9 Type 2 diabetes mellitus without complications
CPT/HCPCS: 36415; 80053; 80061

== ENCOUNTER 2024-08-08 14:47 | Outpatient (CLI) | payer MEDICARE, SELFPAY ==
[2024-08-08 15:04] LABS: Abs Immature Grans 0.06 10^3/uL (0.0-0.06); Absolute Eosinophil Count 0.29 10^3/uL (0.0-0.7); Absolute Lymphocyte Count 3.23 10^3/uL (1.2-3.4); Absolute Monocyte Count 0.97 10^3/uL (0.1-0.8); Absolute Neutrophil Count 4.48 10^3/uL (1.2-6.7); Basophils % 1.1 %; Eosinophils % 3.2 %; HCT 42.7 % (40.0-50.0); HGB 14.4 g/dL (13.5-17.5); Immature Grans % 0.7 %; Lymphocytes % 35.4 %; MCH 31.5 pg (27.0-33.0); MCHC 33.7 % (32.0-36.0); MCV 93 fL (80-95); MPV 9.6 fL (8.0-11.0); Monocytes % 10.6 %; Platelet Count 287 10^3/uL (130-400); RBC 4.57 10^6/uL (4.36-5.78); RDW 12.7 % (11.8-14.1); RDW-SD 43.7 fL; WBC 9.13 10^3/uL (4.4-10.8)
[2024-08-08 16:44] LABS: ALT 51 U/L (16-63); AST 29 U/L (15-37); Albumin 3.8 g/dL (3.4-5.0); Alkaline Phosphatase 96 U/L (46-116); Anion Gap 12.1 mmol/L (3-11); BUN 14 mg/dL (7-18); Bilirubin, Total 0.52 mg/dL (0.2-1.0); CO2 25.9 mmol/L (21.0-32.0); Calcium 9.5 mg/dL (8.5-10.1); Chloride 105 mmol/L (98-107); Estimated GFR 77.04 (mL/min/1.73m2); Glucose 141 mg/dL (74-106); Potassium 4.2 mmol/L (3.5-5.1); Sodium 143 mmol/L (136-145); TSH (W/Ref FT4) 3.79 uIU/mL (0.36-3.74); Total Protein 7.4 g/dL (6.4-8.2)
[2024-08-08 17:22] LABS: FREE T4 0.83 ng/dL (0.76-1.46)
== END 2024-08-08 14:48 | disposition home or self-care (01) ==
LOC: LBO 14:51
PROVIDERS: PCP Nurse Practitioner; Visit Provider Nurse Practitioner
DX: E11.9 Type 2 diabetes mellitus without complications (principal); E78.5 Hyperlipidemia, unspecified; I10 Essential (primary) hypertension
CPT/HCPCS: 36415; 80053; 84439; 84443; 85025

== ENCOUNTER 2024-09-06 14:39 | Outpatient (CLI) | payer MEDICARE, SELFPAY ==
--- NOTE | 2024-09-06 14:30 | RT.EKG_ITS ---
APPROVED REPORT Exam: Resting ECG Reason for Exam: rapid heart rate at PT Patient Location: O HR:99 bpm ECG Measurements Heart Rate 99 AXIS VT 153 P 44 QRSd 100 QRS -49 QT 351 T 64 QTc 451 Conclusion Sinus tachycardia...rate> 99 Atrial premature complex...SV complex w/ short R-R interval LAD, consider left anterior fascicular block...axis(240,-40), S>R II III aVF
== END 2024-09-06 14:40 | disposition home or self-care (01) ==
LOC: DI.KIM 14:40
PROVIDERS: PCP Nurse Practitioner; Visit Provider Nurse Practitioner
DX: R00.0 Tachycardia, unspecified (principal); I49.1 Atrial premature depolarization; I44.4 Left anterior fascicular block
CPT/HCPCS: 93010

== ENCOUNTER 2024-09-19 00:47 | Outpatient (CLI) | payer MEDICARE, SELFPAY ==
--- NOTE | 2024-09-19 05:45 | ETT_ITS ---
APPROVED REPORT Exam: Exercise Treadmill Patient Location: Out-Patient Room/Bed: Stress Nurse: Marivel Adhikari RN Ordering Provider:JUAN MIGUELANDERSON ROMANE, Contact Number: [phone] BMI: 27.59 Baseline Rhythm: Sinus Rhythm Comment: Occasional PAC's Indications: Exertional SOB, exertional dizziness, tachycardia Medical History Medical History: Obesity, HTN, DM, STEFFANIE, HLD, depression Cardiac Medications: Albuterol sulfate, aspirin, atorvastatin, glimepiride, lisinopril-hydrochlorothi azide, metformin Allergies: NKA Cardiac Risk Factors: Family hx, HTN, HLD, diabetes, obesity Previous Cardiac Procedures: None Pretest Chest Pain Characteristics: None Exercise History: Sedentary Physical Disabilities: None Lung Sounds: Clear to auscultation Heart Sounds: Regular Stress Test Details Test: Exercise stress testing was performed using a Tal protocol. Rest Stress HR Resting HR Supine: 86 bpm Max Heart Rate (APMHR): 142 bpm Resting HR Standin bpm Target HR (85% APMHR): 121 bpm Max HR Achieved: 138 bpm % of APMHR: 97 Recovery HR: 91 bpm HR response to stress: Accelerated HR response to stress BP Resting BP Supine: 158/88 mmHg Resting BP Standin/80 mmHg Max BP: 168/84 mmHg Recovery BP: 144/88 mmHg BP response to stress: Normal blood pressure response to stress. ECG Resting ECG: Sinus Rhythm Ectopy: Occasional PAC's Stress ECG: Sinus Tachycardia ST Change: No significant ST segment changes noted Arrhythmia: Occasional PAC's Recovery ECG: Sinus Rhythm Recovery ST Change: No significant ST segment changes noted Recovery Arrhythmia: Occasional PAC's Clinical Reason for Termination: Target HR Achieved Stress Symptoms: Mod SOB Exercise duration: 01 min54 sec Highest Stage Reached: Stage 1: 1.7 mph at 10% grade. Exercise capacity: 4.41 METs Angina Score: None [place] Treadmill Score: 1.7 Rate Pressure Product: 22345 Stress ECG Conclusion 1. Resting electrocardiogram showed low voltage, late transition 2. Patient exercised on the Tal protocol for a minute and 54 seconds. He was limited by shortness of breath 3. Peak heart rate achieved was 97% of maximal predicted for age, suggestive of deconditioning 4. There was no electrocardiographic evidence of myocardial ischemia 5. There were no significant dysrhythmias [place] Treadmill Score is 1.7 which is Moderate risk. Stress Test Summary STAGE Time (mins) Speed (mph) Grade (%) HR BP SpO2 SYMPTOMS METS Supine 86 158/88 99% Standing 94 160/80 1 3 1.7 10 136 98% Mod SOB 4.5 1 min recovery 126 162/58 98% 3 min recovery 94 168/84 98% 6 min recovery 91 144/88 98% SOB resolved.
== END 2024-09-19 01:07 ==
PROVIDERS: PCP Nurse Practitioner; Visit Provider Nurse Practitioner
DX: R06.02 Shortness of breath (principal); R42 Dizziness and giddiness; R00.0 Tachycardia, unspecified
CPT/HCPCS: 93016; 93018; 93017

== ENCOUNTER 2024-10-10 01:34 | Outpatient (CLI) | payer MEDICARE, SELFPAY ==
--- NOTE | 2024-10-10 14:12 | DI.US_ITS ---
APPROVED REPORT EXAM: Comprehensive 2D, Doppler, and color-flow Echocardiogram Other Information Study Quality: Fair. Technically limited study due to body habitus. Conclusion Normal left ventricular wall thickness and chamber size. Ejection fraction is 60%. Wall motion is n ormal Normal right ventricular size and function Both atria are normal in size Aortic valve is sclerotic and trileaflet. There is no aortic stenosis or regurgitation.. Mild mitral annular calcification Estimated right ventricular systolic pressure is 39 mmHg Wall motion Left Ventricle The left ventricle is normal size. The left ventricular systolic function is normal. The left ventric ular ejection fraction is within the normal range. There is normal left ventricular wall thickness. T here is normal LV segmental wall motion. There is no ventricular septal defect visualized. LVEF is 57 %. Right Ventricle The right ventricle is normal size. The right ventricular systolic function is normal. Atria The left atrium size is normal. The right atrium size is normal. The interatrial septum is intact wit h no evidence for an atrial septal defect. Aortic Valve The Aortic valve is sclerotic. Aortic valve is trileaflet. There is no aortic valvular stenosis. No a ortic regurgitation is present. Mitral Valve Mild mitral annular calcification. No evidence of mitral valve stenosis. Trace mitral regurgitation. Tricuspid Valve The tricuspid valve is normal in structure. There is no tricuspid valve stenosis. Trace tricuspid reg urgitation. The RVSP is 38.9 mmHg. Pulmonic Valve Pulmonic valve is not well visualized. There is no pulmonic valvular stenosis. There is no pulmonic v alvular regurgitation. Great Vessels The aortic root is normal in size. The ascending aorta is normal in size. Aortic arch is not well vis ualized. IVC is normal in size and collapses >50% with inspiration. Pericardium There is no pericardial effusion. 2D Dimensions IVSD d PLAX 1.10 cm M: 0.6-1.2 Ao Root d 2.70 cm M: 3.1 - 3.7 LVPW d PLAX 1.13 cm M: 0.6 - 1.2 Ao Asc Diam d 2.56 cm M: 2.6 - 3.4 LVID d PLAX 4.02 cm M: 4.2 - 5.8 LVDs 2.73 cm M: 2.5 - 4.0 LV EF Teichholz 60.6 % FS 31.92 % LV EDV (Teich) 70.7 mL LV ESV (Teich) 27.9 mL M-Mode TAPSE 2.36 cm (M/F) >1.7 Auto EF LV EDV A4C 91.7 mL LV EDV A2C 82.0 mL LV EDV BP 87.6 mL LV ESV A4C 40.1 mL LV ESV A2C 34.9 mL LV ESV BP 37.3 mL LVEF(%) A4C 56.3 % LVEF(%) A2C 57.4 % LVEF(%) BP 57.4 % LV SV A4C 51.6 ml LV SV A2C 47.1 ml LV SV BP 50.3 ml LV CO A4C 5.6 L/min LV CO A2C 5.1 L/min LV CO BP 5.3 L/min HR A4C 107.73 BPM HR A2C 107.47 BPM LV EDV Index (BP) LA Volume LA Length A4C 4.3 cm LA Length A2C 4.6 cm LA Area A4C s 11.15 cm2 LA Area A2C s 12.50 cm2 LA Vol A4C A-L 24.71 mL LA Vol A2C A-L 28.65 mL LA Vol Biplane A-L 27.7 mL LA Vol/BSA A4C A-L LA Vol/BSA A2C A-L LA Vol/BSA BP A-L 15.0 mL/m2 LA Vol A4C MOD 22.1 mL LA Vol A2C MOD 26.7 mL LA Vol BP MOD 24.9 mL RA Volume RA Area A4C 10.1 cm2 RA ESV A4C (A-L) 20.8mL RA Vol/BSA A4C A-L RA Length A4C 4.2 cm RA ESV A4C (MOD) 19.1mL LV Diastology MV E' medial 0.071 (>0.07 m/s) MV E Vmax 0.81 (0.4-1.3 m/s) MV E/E' MED 11.45 (<14) MV A Vmax 1.15 (0.4-1.3 m/s) MV E' lateral 0.084 (>0.1 m/s) E/A Ratio 0.7 MV E/E' LAT 9.63 (<14) MV E' Average 0.078 m/s MV E/E'(average) 10.46 Aortic Valve AoV Vmax 1.87 m/s LVOT Vmax 1.09 m/s AoV Peak Grad 14.0 mmHg LVOT Peak Grad 4.8 mmHg AoV Area (Vmax) 1.64 cm2 LVOT VTI 0.174 m AoV VTI 0.317 m LVOT Mean Grad 3.0 mmHg AoV Mean Julián. 1.34 m/s LVOT SV 49.01 mL AoV Mean Grad 8.2 mmHg LVOT Diam s 1.85 cm AoV Area (VTI) 1.55 cm2 AV Regurg Peak Gr. 13.99 mmHg Velocity Ratio 0.58 Mitral Valve MV DT 239 (160-240 msec) MV Vmax TIPS 1.20 m/s MV Mean Grad 2.2 (<2mmHg) MV VTI 0.227 m Pulmonary Valve PV Vmax 1.79 (0.5-1.5 m/s) RVOT Vmax 0.81 m/s PV Peak Grad 12.8 mmHg RVOT Peak Gr. 2.7 mmHg PV Mean Julián 1.43 m/s RVOT VTI 0.140 m PV Mean Grad 8.9 mmHg RVOT Mean Gr. 1.4 mmHg Tricuspid Valve RA Pressure 3.00 mmHg TR Vmax 3.00 m/s TV S' 0.17 m/s TR Peak Grad 35.9 mmHg RVSP (TR) 38.9 mmHg
== END 2024-10-10 01:54 ==
LOC: DI 01:34
PROVIDERS: PCP Nurse Practitioner; Visit Provider Nurse Practitioner
DX: R00.0 Tachycardia, unspecified (principal); R42 Dizziness and giddiness
CPT/HCPCS: 93306

== ENCOUNTER 2024-10-17 07:57 | Outpatient (CLI) | payer MEDICARE, SELFPAY ==
--- NOTE | 2024-10-17 07:45 | RT.EKG_ITS ---
APPROVED REPORT Exam: Resting ECG Reason for Exam: HTN Patient Location: O HR:103 bpm ECG Measurements Heart Rate 103 AXIS AZ 150 P 39 QRSd 93 QRS -38 QT 334 T 68 QTc 437 Conclusion Sinus tachycardia...rate> 99 Left axis deviation...QRS axis (-30,-90)
== END 2024-10-17 07:58 | disposition home or self-care (01) ==
LOC: DI.CARD 07:59
PROVIDERS: PCP Nurse Practitioner; Visit Provider Registered Nurse
DX: I10 Essential (primary) hypertension (principal)
CPT/HCPCS: 93010

== ENCOUNTER → 2024-10-17 07:59 | Outpatient (BNVA) | payer MEDICARE, SELFPAY | PROVIDERS: PCP Nurse Practitioner; Referring Provider Nurse Practitioner; Visit Provider Registered Nurse | DX: R06.09 Other forms of dyspnea (principal) | CPT/HCPCS: 93005; 99203 ==

== ENCOUNTER 2025-04-24 03:16 | Outpatient (CLI) | payer MEDICARE, SELFPAY ==
--- NOTE | 2025-04-24 12:55 | W.NUTRFU ---
Date of service: 04/24/25 Time of Service: 12:00 Nutrition Note NOTE: Yaron referred to nutrition visit today after his A1C increased from 8.4% Dec 2023 to 10.9% earlier this month (04/03). His PMH is significant for HLD, HTN, obesity (BMI is 32.3 on 04/03 with weight trend on the increase over thee last 2 years at least). Yaron shares he about 7 years ago. He lives in his mobile home and is by himself for all his meals so tends to get pre-made, packaged items and takeout. After discussing his diet, I would assess it as very low in fiber, high total and saturated fat and high in added sugar and sodium. He does not care to have a computer or use one so does not a have any resources for cooking and self-assessed low level of cooking knowledge. Had two hotdogs for breakfast today but did not have buns as he was told he shouldn't have bread as HCP office. We discussed that food choices are about the whole pattern, not just about one food. We tried to look at veggies and ways to eat more tradional foods with less prep/cooking involved - suggested things like premixed coleslaw and adding simmons and vinegar for quick high fiber salad, using hard cooked eggs in a pinch and getting pre-wasehd ready to eat green beans and other produce for quick finger foods. Yaron left after agreeing to follow up call in about a month. He says he will try to make some small changes in the right direction but shares it won't be easy and that he is ambivalent about making many changes as he wants to eat what he likes. We discussed that his changes shouldn't be considered a reprimanding- just a nudge to eat more healthy foods that he still likes (like summer tomatoes). He is now on basal insulin and reports 18units daily with checking his fasting glucose daily (was 182 this morning). Affirmed he is doing great checking and logging his glucose and with some small diet changes should see it improving significantly. Time Spent in Nutritional Counseling and Treatment: 40 min
== END 2025-04-24 03:17 | disposition home or self-care (01) ==
LOC: DS 03:16
PROVIDERS: PCP Nurse Practitioner Family; Visit Provider Dietitian, Registered
DX: E11.9 Type 2 diabetes mellitus without complications (principal)
CPT/HCPCS: 00123; 97802

== ENCOUNTER 2025-08-07 03:29 | Outpatient (CLI) | payer MEDICARE, SELFPAY ==
[2025-08-07 08:22] LABS: Anion Gap 9.3 mmol/L (3-11); BUN 27 mg/dL (7-18); CO2 27.7 mmol/L (21.0-32.0); Calcium 9.3 mg/dL (8.5-10.1); Calculated LDL 83 mg/dL (<100); Chloride 100 mmol/L (98-107); Cholesterol 151 mg/dL (<200); Estimated GFR 55.88 (mL/min/1.73m2); Glucose 166 mg/dL (74-106); HDL Cholesterol 38 mg/dL (>or=40); Potassium 4.4 mmol/L (3.5-5.1); Sodium 137 mmol/L (136-145); Triglyceride 150 mg/dL (<150)
== END 2025-08-07 03:30 | disposition home or self-care (01) ==
LOC: LBO 03:29
PROVIDERS: PCP Nurse Practitioner Family; Visit Provider Nurse Practitioner Family
DX: E78.5 Hyperlipidemia, unspecified (principal); I10 Essential (primary) hypertension
CPT/HCPCS: 36415; 80048; 80061

== ENCOUNTER → 2025-10-23 09:25 | Outpatient (BNVA) | payer MEDICARE, SELFPAY | PROVIDERS: PCP Nurse Practitioner Family; Referring Provider Nurse Practitioner; Visit Provider Registered Nurse | DX: R06.09 Other forms of dyspnea (principal); E11.59 Type 2 diabetes mellitus with other circulatory complications; I10 Essential (primary) hypertension; Z79.02 Long term (current) use of antithrombotics/antiplatelets; Z79.811 Long term (current) use of aromatase inhibitors | CPT/HCPCS: 99214 ==